=== PATIENT | male | born 2005 | race Caucasian/White ===

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

== ENCOUNTER 2023-09-25 08:01 | Emergency (ER) | payer SELFPAY | END 2023-09-25 15:07 | disposition home or self-care (01) | LOC: ED 08:01 | DX: R41.82 Altered mental status, unspecified (principal); F19.90 Other psychoactive substance use, unspecified, uncomplicated; F90.9 Attention-deficit hyperactivity disorder, unspecified type ==